=== PATIENT | male | born 1990 | race Caucasian/White ===

== ENCOUNTER → 2017-03-31 | Emergency (ER) | payer SELFPAY | PROVIDERS: Emergency Provider Nurse Practitioner; Visit Provider Nurse Practitioner ==

== ENCOUNTER → 2020-06-24 16:05 | Outpatient (CLI) | payer MEDICAID, SELFPAY ==
[2020-06-24 16:11] LABS: Adenovirus F 40/41, stool Not Detected (NotDetected); Astrovirus Not Detected (NotDetected); Campylobacter Not Detected (NotDetected); Cryptosporidium Not Detected (NotDetected); Cyclospora Cayetanesis Not Detected (NotDetected); Entamoeba histolytica Not Detected (NotDetected); Enteroaggregative E coli Not Detected (NotDetected); Enteropathogenic E coli Not Detected (NotDetected); Enterotoxigenic E coli Not Detected (NotDetected); Giardia lamblia Not Detected (NotDetected); Norovirus Not Detected (NotDetected); Plesimonas Shigalloides, PCR Not Detected (NotDetected); Rotavirus A Not Detected (NotDetected); Salmonella, PCR Not Detected (NotDetected); Sapovirus Not Detected (NotDetected); Shiga-like toxin E coli Not Detected (NotDetected); Shigella Enterovasive E coli Not Detected (NotDetected); Vibrio Cholerae Not Detected (NotDetected); Vibrio, PCR Not Detected (NotDetected); Yersinia Entercolitica, PCR Not Detected (NotDetected)
[2020-06-30 08:46] LABS: Clostridium Difficile A/B, PCR Detected (NotDetected)
== END ==
PROVIDERS: Visit Provider Nurse Practitioner Family
DX: R19.7 Diarrhea, unspecified (principal); A04.72 Enterocolitis due to Clostridium difficile, not specified as recurrent
CPT/HCPCS: 87507

== ENCOUNTER → 2020-12-17 14:59 | Outpatient (CLI) | payer MEDICAID, SELFPAY ==
[2020-12-17 15:46] LABS: Basophils % 0.3 % (0.1-2.0); Eosinophils # 0.1 K/mm3 (0.0-0.4); Eosinophils % 1.4 % (0.1-12.0); Hematocrit 39.4 % (42.0-52.0); Hemoglobin 12.8 g/dL (14.1-18.0); Lymphocytes # 2.6 K/mm3 (0.7-4.5); Lymphocytes % 27.5 % (10-50); Mean Corpuscular HGB Conc 32.6 g/dL (31.8-35.4); Mean Corpuscular Hemoglobin 29.9 pg (27.0-31.2); Mean Corpuscular Volume 91.8 fl (80-94); Mean Platelet Volume 7.3 fl (7.4-10.4); Monocytes # 0.5 K/mm3 (0.1-1.0); Monocytes % 4.9 % (1.7-9.3); Neutrophils # 6.1 K/mm3 (1.8-7.8); Neutrophils % 65.8 % (37.0-80.0); Platelet Count 318 K/mm3 (142-424); Red Blood Count 4.29 M/mm3 (4.60-6.20); Red Cell Distribution Width 12.9 % (11.5-17.5); White Blood Count 9.3 K/mm3 (4.8-10.8)
[2020-12-17 15:52] LABS: Prothrombin Time 11.5 seconds (10.1-12.5)
[2020-12-17 15:57] LABS: INR 0.97 (0.9-1.1)
[2020-12-17 16:04] LABS: Alanine Aminotransferase 24 U/L (12-78); Albumin Level 3.8 g/dl (3.5-5.0); Albumin/Globulin Ratio 1.3 (1.1-1.8); Alkaline Phosphatase 69 U/L (38-126); Anion Gap 12.8 mEq/L (5-15); Aspartate Amino Transferase 41 U/L (17-59); Bilirubin,Total 0.3 mg/dl (0.2-1.3); Blood Urea Nitrogen 8 mg/dl (9-20); Calcium 8.9 mg/dl (8.4-10.2); Carbon Dioxide 32 mmol/L (22.0-30.0); Chloride 93 mmol/L (98-107); Estimated Glomerular Filt Rate 159 ml/min (>60); GFR (African American) 193 ML/MIN (>60); Globulin 2.9 g/dL (1.3-3.2); Glucose 94 mg/dl (74-100); Potassium 3.8 mmoL/L (3.5-5.1); Sodium 134 mmol/L (136-145); Total Protein,Serum 6.7 g/dl (6.3-8.2)
[2020-12-17 16:42] LABS: Adenovirus F 40/41, stool Not Detected (NotDetected); Astrovirus Not Detected (NotDetected); Campylobacter Not Detected (NotDetected); Clostridium Difficile A/B, PCR Not Detected (NotDetected); Cryptosporidium Not Detected (NotDetected); Cyclospora Cayetanesis Not Detected (NotDetected); Entamoeba histolytica Not Detected (NotDetected); Enteroaggregative E coli Not Detected (NotDetected); Enterotoxigenic E coli Not Detected (NotDetected); Giardia lamblia Not Detected (NotDetected); Plesimonas Shigalloides, PCR Not Detected (NotDetected); Rotavirus A Not Detected (NotDetected); Salmonella, PCR Not Detected (NotDetected); Sapovirus Not Detected (NotDetected); Shiga-like toxin E coli Not Detected (NotDetected); Shigella Enterovasive E coli Not Detected (NotDetected); Vibrio Cholerae Not Detected (NotDetected); Vibrio, PCR Not Detected (NotDetected); Yersinia Entercolitica, PCR Not Detected (NotDetected)
[2020-12-17 23:24] LABS: Enteropathogenic E coli Detected (NotDetected); Norovirus Detected (NotDetected)
[2020-12-19 10:23] LABS: HIV Screen 4th Generation wRfx Non Reactive (Non Reactive); Hep A Ab, IgM Negative (Negative); Hep A Ab, Total Positive (Negative); Hep B Core Ab, Total Negative (Negative); Hep B Surface Ab, Qual Reactive (.); Hepatitis B Surface Antigen Negative (Negative); Hepatitis C Antibody >11.0 s/co ratio (0.0-0.9)
[2020-12-20 12:26] LABS: H. pylori Breath Test Negative (Negative)
[2020-12-21 07:40] LABS: ALT (SGPT) P5P 23 IU/L (0-55); Alpha 2-Macroglobulins, Qn 120 mg/dL (110-276); Apolipoprotein A-1 121 mg/dL (101-178); Bilirubin, Total 0.3 mg/dL (0.0-1.2); Fibrosis Score 0.03 (0.00-0.21); GGT 10 IU/L (0-65); Haptoglobin 165 mg/dL (17-317); Necroinflammat Activity Grade A0-No activity (.); Necroinflammat Activity Score 0.07 (0.00-0.17)
== END ==
PROVIDERS: Visit Provider Nurse Practitioner Family
DX: B18.2 Chronic viral hepatitis C (principal); R19.7 Diarrhea, unspecified; R11.2 Nausea with vomiting, unspecified; A04.0 Enteropathogenic Escherichia coli infection; A08.11 Acute gastroenteropathy due to Norwalk agent; Z11.4 Encounter for screening for human immunodeficiency virus [HIV]
CPT/HCPCS: 36415; 80053; 81596; 83013; 85025; 85610; 86703; 86704; 86706; 86708; 87340; 87380; 87507; 87522; 87902; G0432

== ENCOUNTER → 2021-01-22 11:57 | Outpatient (CLI) | payer MEDICAID, SELFPAY ==
[2021-01-22 12:15] LABS: Astrovirus Not Detected (NotDetected); Campylobacter Not Detected (NotDetected); Clostridium Difficile A/B, PCR Not Detected (NotDetected); Cryptosporidium Not Detected (NotDetected); Cyclospora Cayetanesis Not Detected (NotDetected); Entamoeba histolytica Not Detected (NotDetected); Enteroaggregative E coli Not Detected (NotDetected); Enterotoxigenic E coli Not Detected (NotDetected); Giardia lamblia Not Detected (NotDetected); Norovirus Not Detected (NotDetected); Plesimonas Shigalloides, PCR Not Detected (NotDetected); Rotavirus A Not Detected (NotDetected); Salmonella, PCR Not Detected (NotDetected); Sapovirus Not Detected (NotDetected); Shiga-like toxin E coli Not Detected (NotDetected); Shigella Enterovasive E coli Not Detected (NotDetected); Vibrio Cholerae Not Detected (NotDetected); Vibrio, PCR Not Detected (NotDetected); Yersinia Entercolitica, PCR Not Detected (NotDetected)
[2021-01-22 13:28] LABS: Chloride 102 mmol/L (98-107); Potassium 4.2 mmoL/L (3.5-5.1); Sodium 136 mmol/L (136-145)
[2021-01-22 13:31] LABS: Alanine Aminotransferase 11 U/L (12-78); Albumin Level 3.6 g/dl (3.5-5.0); Albumin/Globulin Ratio 1.2 (1.1-1.8); Alkaline Phosphatase 87 U/L (38-126); Anion Gap 8.2 mEq/L (5-15); Aspartate Amino Transferase 17 U/L (17-59); Bilirubin,Total 0.3 mg/dl (0.2-1.3); Blood Urea Nitrogen 15 mg/dl (9-20); Calcium 8.9 mg/dl (8.4-10.2); Carbon Dioxide 30 mmol/L (22.0-30.0); Estimated Glomerular Filt Rate 159 ml/min (>60); GFR (African American) 193 ML/MIN (>60); Glucose 101 mg/dl (74-100); Total Protein,Serum 6.6 g/dl (6.3-8.2)
[2021-01-22 13:48] LABS: Triiodothryronine (T3) Uptake 32 % (23.5-40.5)
[2021-01-22 13:49] LABS: Free Thyroxine Index 3.8 ug/dL (5.93-13.13); T4 (Thyroxine) 11.9 ug/dl (5.53-11.0)
[2021-01-22 15:48] LABS: Adenovirus F 40/41, stool Detected (NotDetected); Enteropathogenic E coli Detected (NotDetected)
== END ==
PROVIDERS: PCP Internal Medicine Adolescent Medicine; Visit Provider Internal Medicine Adolescent Medicine
DX: K52.9 Noninfective gastroenteritis and colitis, unspecified (principal); B34.0 Adenovirus infection, unspecified; A04.0 Enteropathogenic Escherichia coli infection
CPT/HCPCS: 80053; 84436; 84443; 84479; 87507; 87522

== ENCOUNTER → 2021-01-26 08:58 | Outpatient (CLI) | payer MEDICAID, SELFPAY ==
--- NOTE | 2021-01-26 09:03 | CT_ITS ---
PROCEDURE: CT ABDOMEN PELVIS WO/W CON CLINICAL INDICATION: CHRONIC DIARRHEA Chronic diarrhea and left lower quadrant pain with nausea and vomiting for 3-5 months. COMPARISON: No exams were available for comparison TECHNIQUE: IV Contrast: 75ML Isovue 370 Oral Contrast 10ml Gastroview Axial images obtained with sagittal and coronal reformats. All CT scans at the facility use one or more dose reduction, viz: automated exposure control, ma/kV adjustment per patient size (including targeted exams where dose is matched to indication, i.e. head), or iterative reconstruction technique. FINDINGS: LOWER THORAX: Subsegmental atelectasis left lower lobe. ABDOMEN & PELVIS: There is a linear hepatic hypodensity in the region of the ligamentum teres that extends to the liver capsule. There is mild hepatomegaly. Spleen is unremarkable. There is a splenule. Adrenal glands and kidneys are unremarkable. Ureters are not well visualized however there is no hydro ureter. Bladder appears unremarkable. Pancreas appears unremarkable. Stomach small bowel, colon, appendix appear unremarkable. There is no lymphadenopathy. Soft tissues appear unremarkable. The osseous structures appear unremarkable. IMPRESSION: Linear hepatic hypodensity in the region of the ligamentum teres that extends to the liver capsule. This could represent fat along the ligamentum teres. However, further evaluation with abdominal ultrasound is recommended to exclude a lesion. Dictated by: Vonnie Pelayo MD 01/26/2021 13:25 Vonnie Pelayo MD in [facility] 01/26/2021 13:25
== END ==
PROVIDERS: PCP Internal Medicine Adolescent Medicine; Visit Provider Internal Medicine Adolescent Medicine
DX: K52.9 Noninfective gastroenteritis and colitis, unspecified (principal)
CPT/HCPCS: 74178; Q9967

== ENCOUNTER → 2021-02-01 10:44 | Outpatient (CLI) | payer MEDICAID, SELFPAY | PROVIDERS: Visit Provider Internal Medicine Adolescent Medicine | DX: R10.84 Generalized abdominal pain (principal); B18.2 Chronic viral hepatitis C | CPT/HCPCS: 87522 ==

== ENCOUNTER 2021-02-09 16:36 | Emergency (ER) | payer MEDICAID, SELFPAY ==
--- NOTE | 2021-02-09 16:35 | ECG_ITS ---
APPROVED REPORT Exam: Resting ECG HR:105 bpm ECG Measurements Heart Rate 105 AXES SC 138 P 61 QRSd 88 QRS 85 QT 336 T 41 QTc 444 Conclusion Sinus tachycardia RSR' or QR pattern in V1 suggests right ventricular conduction delay Borderline ECG Electronically signed by : Darwin Hopson MD 02/11/2021 13:53:58
[2021-02-09 16:36] VITALS: BP 165/97; PULSE 106; RESP 16; TEMP 36.9; O2SAT 100; BMI 25.2
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
[2021-02-09 16:57] LABS: Basophils # 0.1 K/mm3 (0-0.2); Basophils % 0.7 % (0.1-2.0); Eosinophils # 0.2 K/mm3 (0.0-0.4); Eosinophils % 1.9 % (0.1-12.0); Hematocrit 45.9 % (42.0-52.0); Lymphocytes # 3.2 K/mm3 (0.7-4.5); Lymphocytes % 30.8 % (10-50); Mean Corpuscular HGB Conc 32.7 g/dL (31.8-35.4); Mean Corpuscular Hemoglobin 29.3 pg (27.0-31.2); Mean Corpuscular Volume 89.6 fl (80-94); Mean Platelet Volume 7.6 fl (7.4-10.4); Monocytes # 0.3 K/mm3 (0.1-1.0); Monocytes % 3.2 % (1.7-9.3); Neutrophils # 6.6 K/mm3 (1.8-7.8); Neutrophils % 63.4 % (37.0-80.0); Platelet Count 532 K/mm3 (142-424); Red Blood Count 5.12 M/mm3 (4.60-6.20); Red Cell Distribution Width 13.3 % (11.5-17.5); White Blood Count 10.5 K/mm3 (4.8-10.8)
[2021-02-09 17:01] LABS: Potassium 3.5 mmoL/L (3.5-5.1); Sodium 143 mmol/L (136-145)
[2021-02-09 17:04] LABS: Alanine Aminotransferase 14 U/L (12-78); Albumin Level 4.4 g/dl (3.5-5.0); Albumin/Globulin Ratio 1.4 (1.1-1.8); Alkaline Phosphatase 82 U/L (38-126); Aspartate Amino Transferase 20 U/L (17-59); Bilirubin,Total 0.3 mg/dl (0.2-1.3); Blood Urea Nitrogen 11 mg/dl (9-20); Carbon Dioxide 30 mmol/L (22.0-30.0); Creatinine Clearance Estimated 211 mL/min (50-200); Estimated Glomerular Filt Rate 159 ml/min (>60); GFR (African American) 193 ML/MIN (>60); Globulin 3.2 g/dL (1.3-3.2); Total Protein,Serum 7.6 g/dl (6.3-8.2)
[2021-02-09 17:05] LABS: Calcium 9.5 mg/dl (8.4-10.2); Glucose 82 mg/dl (74-100)
[2021-02-09 17:17] LABS: Troponin I < 0.01 ng/ml (0.00-0.034)
[2021-02-09 17:48] LABS: Anion Gap 12.5 mEq/L (5-15)
[2021-02-09 17:49] LABS: Chloride 104 mmol/L (98-107)
--- NOTE | 2021-02-09 17:53 | PC.NURSE ---
Noticed pt was attempting to walk out of ER. Stopped him and asked what he was doing, he advised that he was going to look for his dad, advised him he couldn't go out with an IV in his arm. PT walked back into his room and asked for his IV to be taken out at this time and he wanted to go. Advised he felt more anxious sitting here and just wanted to leave. Asked pt multiple times if he was sure that was what he wanted to do, pt advised it was and that he just wanted to leave. Removed IV and pt left with no issues. Advised pt if anything change to return to ED. Pt agreeable at this time
[2021-02-09 18:03] VITALS: BP 146/78; PULSE 98; RESP 16; TEMP 36.7; O2SAT 98
== END 2021-02-09 18:05 | disposition left against medical advice (07) ==
PROVIDERS: Emergency Provider Student in an Organized Health Care Education/Training Program; PCP Internal Medicine Adolescent Medicine
DX: R06.02 Shortness of breath (principal); R42 Dizziness and giddiness
CPT/HCPCS: 71046; 80053; 84484; 85025; 93005; 99283

== ENCOUNTER → 2021-05-28 09:38 | Outpatient (CLI) | payer MEDICAID, SELFPAY ==
[2021-05-28 10:41] LABS: Basophils # 0.1 K/mm3 (0-0.2); Basophils % 0.6 % (0.1-2.0); Eosinophils # 0.2 K/mm3 (0.0-0.4); Eosinophils % 1.6 % (0.1-12.0); Hematocrit 43.4 % (42.0-52.0); Hemoglobin 14.5 g/dL (14.1-18.0); Lymphocytes # 3.9 K/mm3 (0.7-4.5); Lymphocytes % 33.4 % (10-50); Mean Corpuscular HGB Conc 33.3 g/dL (31.8-35.4); Mean Corpuscular Hemoglobin 29.7 pg (27.0-31.2); Mean Corpuscular Volume 89.3 fl (80-94); Mean Platelet Volume 6.8 fl (7.4-10.4); Monocytes # 0.6 K/mm3 (0.1-1.0); Monocytes % 5.1 % (1.7-9.3); Neutrophils # 6.8 K/mm3 (1.8-7.8); Neutrophils % 59.4 % (37.0-80.0); Platelet Count 386 K/mm3 (142-424); Red Blood Count 4.87 M/mm3 (4.60-6.20); Red Cell Distribution Width 13.3 % (11.5-17.5); White Blood Count 11.5 K/mm3 (4.8-10.8)
[2021-05-28 11:15] LABS: Alanine Aminotransferase 17 U/L (12-78); Albumin Level 4.3 g/dl (3.5-5.0); Albumin/Globulin Ratio 1.5 (1.1-1.8); Alkaline Phosphatase 82 U/L (38-126); Anion Gap 11.9 mEq/L (5-15); Aspartate Amino Transferase 22 U/L (17-59); Bilirubin,Total 0.3 mg/dl (0.2-1.3); Blood Urea Nitrogen 17 mg/dl (9-20); Calcium 9.5 mg/dl (8.4-10.2); Carbon Dioxide 29 mmol/L (22.0-30.0); Chloride 101 mmol/L (98-107); Estimated Glomerular Filt Rate 133 ml/min (>60); GFR (African American) 161 ML/MIN (>60); Globulin 2.9 g/dL (1.3-3.2); Glucose 89 mg/dl (74-100); Potassium 3.9 mmoL/L (3.5-5.1); Sodium 138 mmol/L (136-145); Total Protein,Serum 7.2 g/dl (6.3-8.2)
[2021-05-28 11:31] LABS: 25-OH Vitamin D, Total 16.9 ng/mL (30-100)
[2021-05-28 11:32] LABS: T4 (Thyroxine) 8.5 ug/dl (5.53-11.0)
[2021-05-28 11:33] LABS: Free Thyroxine Index 2.7 ug/dL (5.93-13.13); Triiodothryronine (T3) Uptake 32 % (23.5-40.5)
[2021-05-28 11:45] LABS: Thyroid Stimulating Hormone 2.87 uIU/mL (0.465-4.68)
[2021-05-28 12:03] LABS: Vitamin B12 279 pg/mL (239-931)
[2021-05-31 16:28] LABS: Treponema pallidum Ab (FTA-ABS Non Reactive (Non Reactive)
[2021-06-01 03:37] LABS: Hep A Ab, IgM Negative (Negative); Hepatitis B Core Antibody IgM Negative (Negative); Hepatitis B Surface Antigen Negative (Negative); Hepatitis C Antibody >11.0 s/co ratio (0.0-0.9)
== END ==
PROVIDERS: PCP Internal Medicine Adolescent Medicine; Referring Provider Internal Medicine Adolescent Medicine; Visit Provider Internal Medicine Adolescent Medicine
DX: G60.9 Hereditary and idiopathic neuropathy, unspecified (principal); Z86.19 Personal history of other infectious and parasitic diseases
CPT/HCPCS: 36415; 80053; 80074; 82306; 82607; 84436; 84443; 84479; 85025; 86780; 87522

== ENCOUNTER 2021-06-13 09:39 | Emergency (ER) | payer MEDICAID, SELFPAY ==
[2021-06-13 09:41] VITALS: BP 147/97; PULSE 120; RESP 20; TEMP 36.7; O2SAT 98; BMI 25.1
--- NOTE | 2021-06-13 10:00 | PC.NURSE ---
ED MD at
--- NOTE | 2021-06-13 10:07 | [facility].EDGENADL ---
ED Disposition Clinical Impression: Multiple excoriations, Rash and other nonspecific skin eruption Disposition: Home, Self-Care Condition on Discharge: Good Instructions: DI for Skin Abscess Additional Instructions: Please follow up with Dr. Hopson regarding the remainder of your bloodwork. You may take Benadryl or Vistaril at home for symptoms. In the meantime, try to prevent itching and scratching the rash and lesions as this will worsen your condition. If your condition worsens or any other concerns arise, please return to the emergency department. Otherwise, please follow-up as instructed. Referrals: Darwin Hopson MD [Primary Care Provider] - - Critical Care Critical Care Time: No Attestation: On 06/13/21, the high probability of a clinically significant, sudden or life threatening deterioration of the following system(s) required my full and direct attention, intervention and personal management. The time I documented below is in addition to time spent performing reported procedures but includes the following listed in this critical care notation. Medical Decision Making - Medical Records Medical records reviewed: Yes: I reviewed the patient's medical records. - Jose Daniel Inquiry Pt receiving controlled substance: No Vital Signs: 06/13/21 09:41 Temperature 98.0 F Temperature Source Oral Pulse Rate [Left Radial] 120 H Respiratory Rate 20 Blood Pressure [Right Arm] 147/97 H Blood Pressure Mean [Right Arm] 113 Blood Pressure Source [Right Arm] Automatic Cuff Blood Pressure Position [Right Arm] Sitting 02 Sat by Pulse Oximetry 98 Oxygen Delivery Method Room Air - Lab Data Lab results reviewed: Yes: I reviewed the patient's lab results. Lab Results 06/13/21 10:08: Urine Color Dk yellow, Urine Appearance Clear, Urine pH 6.0, Ur Specific [place] >= 1.030, Urine Protein Trace, Urine Glucose (UA) Negative, Urine Ketones Negative, Urine Blood Negative, Urine Nitrate Negative, Urine Bilirubin Negative, Urine Urobilinogen 0.2, Ur Leukocyte Esterase Negative, Urine RBC Occasional, Urine WBC None, Ur Squamous Epith Cells Occasional, Urine Bacteria Trace 06/13/21 10:30: WBC 8.8, RBC 4.88, Hgb 14.5, Hct 43.6, MCV 89.4, MCH 29.8, MCHC 33.3, RDW 13.7, Plt Count 390, MPV 7.2 L, Neut % (Auto) 62.4, Lymph % (Auto) 30.8, [place] % (Auto) 4.5, Eos % (Auto) 1.2, Baso % (Auto) 1.1, Neut # (Auto) 5.5, Lymph # (Auto) 2.7, [place] # (Auto) 0.4, Eos # (Auto) 0.1, Baso # (Auto) 0.1 06/13/21 10:30: Sodium 135 L, Potassium 3.5, Chloride 97 L, Carbon Dioxide 30, Anion Gap 11.5, BUN 13, Creatinine 0.80, Estimated Creat Clear 157, Estimated GFR 114, Est GFR ( Amer) 138, Glucose 88, Calcium 8.8, Total Bilirubin 0.6, AST 39, ALT 22, Alkaline Phosphatase 90, Total Protein 7.9, Albumin 4.5, Globulin 3.4 H, Albumin/Globulin Ratio 1.3, Lipase 27 Result diagrams: 06/13/21 10:30 06/13/21 10:30 Orders (Tests/Meds): ED MEDICATIONS Discontinued Medications Generic Name Dose Route Start Last Admin Trade Name Jemal PRN Reason Stop Dose Admin Hydroxyzine Pamoate 50 mg 06/13/21 10:25 06/13/21 11:18 Hydroxyzine Pamoate 25mg Capsule PO 06/13/21 10:26 50 mg ONCE ONE Administration ORDERS Category Date Time Status HCV RNA PCR, Quant Stat Lab 06/13/21 10:30 Received HIV Panel [id number] Stat Lab 06/13/21 10:30 Received Strep Scrn Group A (Rapid) Stat Lab 06/13/21 10:14 Ordered Treponema pallidum Ab (FTA-ABS Stat Lab 06/13/21 10:30 Received Medical Decision Narrative: Patient is a 30-year-old male with a history significant for IV drug use is presenting for chief complaint of lesions and excoriations to upper extremities, face, trunk and back. Differential diagnosis includes, but is not limited to, skin excoriation secondary to drug use, insect bite such as flea versus scabies, syphilis rash, allergic reaction, atopic dermatitis, other. On initial exam, patient is tachycardic but does admit to feeling anxious. Otherwi
--- NOTE | 2021-06-13 10:18 | PC.NURSE ---
Called lab for pt blood draw
[2021-06-13 10:48] LABS: Basophils # 0.1 K/mm3 (0-0.2); Basophils % 1.1 % (0.1-2.0); Eosinophils # 0.1 K/mm3 (0.0-0.4); Eosinophils % 1.2 % (0.1-12.0); Hematocrit 43.6 % (42.0-52.0); Hemoglobin 14.5 g/dL (14.1-18.0); Lymphocytes # 2.7 K/mm3 (0.7-4.5); Lymphocytes % 30.8 % (10-50); Mean Corpuscular HGB Conc 33.3 g/dL (31.8-35.4); Mean Corpuscular Hemoglobin 29.8 pg (27.0-31.2); Mean Corpuscular Volume 89.4 fl (80-94); Mean Platelet Volume 7.2 fl (7.4-10.4); Monocytes # 0.4 K/mm3 (0.1-1.0); Monocytes % 4.5 % (1.7-9.3); Neutrophils # 5.5 K/mm3 (1.8-7.8); Neutrophils % 62.4 % (37.0-80.0); Platelet Count 390 K/mm3 (142-424); Red Blood Count 4.88 M/mm3 (4.60-6.20); Red Cell Distribution Width 13.7 % (11.5-17.5); White Blood Count 8.8 K/mm3 (4.8-10.8)
[2021-06-13 10:58] LABS: Chloride 97 mmol/L (98-107); Potassium 3.5 mmoL/L (3.5-5.1); Sodium 135 mmol/L (136-145)
[2021-06-13 11:00] LABS: Alanine Aminotransferase 22 U/L (12-78); Alkaline Phosphatase 90 U/L (38-126); Aspartate Amino Transferase 39 U/L (17-59); Bilirubin,Total 0.6 mg/dl (0.2-1.3); Blood Urea Nitrogen 13 mg/dl (9-20); Creatinine Clearance Estimated 157 mL/min (50-200); Estimated Glomerular Filt Rate 114 ml/min (>60); GFR (African American) 138 ML/MIN (>60)
[2021-06-13 11:01] LABS: Albumin Level 4.5 g/dl (3.5-5.0); Albumin/Globulin Ratio 1.3 (1.1-1.8); Anion Gap 11.5 mEq/L (5-15); Calcium 8.8 mg/dl (8.4-10.2); Carbon Dioxide 30 mmol/L (22.0-30.0); Globulin 3.4 g/dL (1.3-3.2); Glucose 88 mg/dl (74-100); Lipase 27 U/L (23-300); Total Protein,Serum 7.9 g/dl (6.3-8.2)
[2021-06-13 11:39] LABS: Microscopic, Urine URINE MICROSCOPIC (MICROSCOPIC)
[2021-06-13 11:41] LABS: Appearance,Urine CLEAR (Clear); Bilirubin,Urine Negative (Negative); Blood, Urine Negative (Negative); Color,Urine DK YELLOW (Yellow); Glucose,Urine (UA) Negative (Negative); Ketones,Urine Negative (Negative); Leukocyte Esterase,Urine Negative (Negative); Nitrate,Urine Negative (Negative); Protein,Urine TRACE (Negative); Specific Gravity, Urine >= 1.030 (1.005-1.030); Urobilinogen,Urine 0.2 EU/dl (0.2)
[2021-06-13 11:57] LABS: Bacteria,Urine Trace /lpf; RBC,Urine Occasional #/hpf (0-3); Squamous Epithelial Cell,Urine Occasional #/hpf (0-5)
[2021-06-13 12:24] VITALS: BP 153/99; PULSE 107; RESP 18; TEMP 36.7; O2SAT 100
[2021-06-13 12:33] LABS: Strep Scrn Group A (Rapid) Negative (Negative)
[2021-06-14 04:15] LABS: HIV Screen 4th Generation wRfx Non Reactive (Non Reactive)
[2021-06-14 17:21] LABS: Treponema pallidum Ab (FTA-ABS Non Reactive (Non Reactive)
[2021-06-14 22:08] LABS: Neisseria gonorrhoeae, NAA Negative (Negative)
== END 2021-06-13 12:27 | disposition home or self-care (01) ==
PROVIDERS: Emergency Provider Emergency Medicine; PCP Internal Medicine Adolescent Medicine
DX: F42.4 Excoriation (skin-picking) disorder (principal); F19.10 Other psychoactive substance abuse, uncomplicated; Z79.899 Other long term (current) drug therapy
CPT/HCPCS: 36415; 80053; 81001; 83690; 85025; 86703; 86780; 87430; 87491; 87522; 87591; 99213; G0432; G0463

== ENCOUNTER 2021-08-10 15:46 | Emergency (ER) | payer MEDICAID, SELFPAY ==
--- NOTE | 2021-08-10 15:46 | ECG_ITS ---
APPROVED REPORT Exam: Resting ECG HR:106 bpm ECG Measurements Heart Rate 106 AXES OK 138 P 46 QRSd 91 QRS 76 QT 309 T 38 QTc 371 Conclusion SINUS TACHYCARDIA ABNORMAL RHYTHM ECG UNCONFIRMED REPORT Electronically signed by : Darwin Hopson MD 08/11/2021 21:10:53
[2021-08-10 15:48] VITALS: BP 127/90; PULSE 105; RESP 19; TEMP 36.7; O2SAT 99; BMI 30.7
--- NOTE | 2021-08-10 15:53 | XR_ITS ---
FINAL REPORT CLINICAL HISTORY: chest pain COMPARISON: February 09, 2021 FINDINGS: Two views of the chest were obtained. The patient is status post median sternotomy. The heart size and pulmonary vascularity are within normal limits. The mediastinum is normal. No acute pulmonary abnormality is identified. There is no pneumothorax. The bony thorax is intact. IMPRESSION: No active cardiopulmonary disease. Reviewed, Interpreted and Dictated by Harvinder Persaud III, MD Transcribed by Stephanie Mcneill Authenticated by Harvinder Persaud III, MD on 08/10/2021 04:36:47 PM [facility]
--- NOTE | 2021-08-10 15:58 | CT_ITS ---
FINAL REPORT TECHNIQUE: After the administration of oral and intravenous contrast, axial images were obtained through the abdomen and pelvis by computed tomography. The study was performed with techniques to keep radiation dose as low as reasonably achievable, (ALARA). Individual dose reduction techniques using automated exposure control or adjustment of mA and/or kV according to the patient's size were employed. CLINICAL HISTORY: LEFT SIDED ABD PAIN COMPARISON: 01/26/2021 FINDINGS: Abdomen: There is mild atelectasis or scarring in the left lung base. The liver is normal in size and attenuation. The gallbladder is present. The spleen is unremarkable. The adrenals are normal. The pancreas is unremarkable. The kidneys enhance appropriately. The aorta is normal in caliber. There is no free fluid or adenopathy. Pelvis: The appendix is normal. The urinary bladder is unremarkable. There is no free fluid or adenopathy. IMPRESSION: No acute intra-abdominal process. Reviewed, Interpreted and Dictated by Harvinder Persaud III, MD Transcribed by Stephanie Mcneill Authenticated by Harvinder Persaud III, MD on 08/10/2021 04:36:48 PM [facility]
[2021-08-10 16:00] VITALS: BP 129/85; PULSE 101; RESP 20; O2SAT 98
[2021-08-10 16:02] LABS: Coronavirus 19, PCR Not Detected (NotDetected); Influenza A, PCR Not Detected (NotDetected); Influenza B, PCR Not Detected (NotDetected)
[2021-08-10 16:11] LABS: Chloride 104 mmol/L (98-107); Potassium 3.7 mmoL/L (3.5-5.1); Sodium 136 mmol/L (136-145)
[2021-08-10 16:12] LABS: Basophils # 0.2 K/mm3 (0-0.2); Basophils % 1.6 % (0.1-2.0); Eosinophils # 0.1 K/mm3 (0.0-0.4); Eosinophils % 0.4 % (0.1-12.0); Hematocrit 49.2 % (42.0-52.0); Hemoglobin 16.4 g/dL (14.1-18.0); Lymphocytes # 2.5 K/mm3 (0.7-4.5); Lymphocytes % 18.6 % (10-50); Mean Corpuscular HGB Conc 33.3 g/dL (31.8-35.4); Mean Corpuscular Hemoglobin 30.1 pg (27.0-31.2); Mean Corpuscular Volume 90.5 fl (80-94); Mean Platelet Volume 7.5 fl (7.4-10.4); Monocytes # 0.9 K/mm3 (0.1-1.0); Monocytes % 6.9 % (1.7-9.3); Neutrophils # 9.7 K/mm3 (1.8-7.8); Neutrophils % 72.5 % (37.0-80.0); Platelet Count 403 K/mm3 (142-424); Red Blood Count 5.44 M/mm3 (4.60-6.20); White Blood Count 13.4 K/mm3 (4.8-10.8)
[2021-08-10 16:14] LABS: Amylase 92 U/L (30-110); Anion Gap 10.7 mEq/L (5-15); Blood Urea Nitrogen 12 mg/dl (9-20); Carbon Dioxide 25 mmol/L (22.0-30.0); Creatinine Clearance Estimated 256 mL/min (50-200); Estimated Glomerular Filt Rate 159 ml/min (>60); GFR (African American) 193 ML/MIN (>60); Lipase 34 U/L (23-300)
[2021-08-10 16:15] LABS: Calcium 9.2 mg/dl (8.4-10.2); Glucose 112 mg/dl (74-100)
--- NOTE | 2021-08-10 16:24 | HMH.EDGENADL ---
ED Disposition Clinical Impression: Gastroenteritis Disposition: Home, Self-Care Condition on Discharge: Good Instructions: DI for Viral Gastroenteritis -- Adult Prescriptions: Dicyclomine HCl [Bentyl 10mg capsule] 10 mg PO QID #28 cap Transmission Status: Pending to [facility] # Ondansetron [Zofran 4mg ODT] 4 mg PO BIDP PRN #10 tab PRN Reason: Nausea Transmission Status: Pending to [facility] # Referrals: Provider,Referral, [Referring] - - Critical Care Critical Care Time: No Attestation: On 08/10/21, the high probability of a clinically significant, sudden or life threatening deterioration of the following system(s) required my full and direct attention, intervention and personal management. The time I documented below is in addition to time spent performing reported procedures but includes the following listed in this critical care notation. Medical Decision Making - Medical Records Medical records reviewed: Yes: I reviewed the patient's medical records. - Jose Daniel Inquiry Pt receiving controlled substance: No Vital Signs: 08/10/21 15:48 Temperature 98.1 F Temperature Source Oral Pulse Rate [Left Radial] 105 H Respiratory Rate 19 Blood Pressure [Right Arm] 127/90 Blood Pressure Mean [Right Arm] 102 Blood Pressure Source [Right Arm] Automatic Cuff Blood Pressure Position [Right Arm] Sitting 02 Sat by Pulse Oximetry 99 Oxygen Delivery Method Room Air - Lab Data Lab Results 08/10/21 15:54: WBC 13.4 H, RBC 5.44, Hgb 16.4, Hct 49.2, MCV 90.5, MCH 30.1, MCHC 33.3, RDW 14.0, Plt Count 403, MPV 7.5, Neut % (Auto) 72.5, Lymph % (Auto) 18.6, [place] % (Auto) 6.9, Eos % (Auto) 0.4, Baso % (Auto) 1.6, Neut # (Auto) 9.7 H, Lymph # (Auto) 2.5, [place] # (Auto) 0.9, Eos # (Auto) 0.1, Baso # (Auto) 0.2 08/10/21 15:54: Sodium 136, Potassium 3.7, Chloride 104, Carbon Dioxide 25, Anion Gap 10.7, BUN 12, Creatinine 0.60 L, Estimated Creat Clear 256, Estimated GFR 159, Est GFR ( Amer) 193, Glucose 112 H, Calcium 9.2, Troponin I < 0.01, Amylase 92, Lipase 34 08/10/21 15:54: SARS-CoV-2 (PCR) Not detected, Influenza A Untype (PCR) Not detected, Influenza Type B (PCR) Not detected Result diagrams: 08/10/21 15:54 08/10/21 15:54 Orders (Tests/Meds): ED MEDICATIONS Generic Name Dose Route Start Last Admin Trade Name Freq PRN Reason Stop Dose Admin Sodium Chloride 1,000 mls @ 999 mls/hr 08/10/21 16:15 08/10/21 16:14 Sod Chlor 0.9% 1000ml Bag IV 08/10/21 17:15 999 mls/hr .Q1H1M THOR Administration Sodium Chloride 10 ml 08/10/21 15:53 Sodium Chloride 0.9% 10ml Flush Syringe IV 09/09/21 15:52 NEEDED PRN Maintain IV Site Discontinued Medications Generic Name Dose Route Start Last Admin Trade Name Freq PRN Reason Stop Dose Admin Lactated Ringer's 1,000 mls @ 999 mls/hr 08/10/21 16:00 08/10/21 16:12 Lactated Ringer's 1000 Ml Bag IV 08/10/21 17:00 Not Given .Q1H1M THOR Iopamidol 75 ml 08/10/21 16:21 08/10/21 16:22 Iopamidol-370 (76%);100ml Bottle IV 08/10/21 16:22 75 ml ONCE ONE Administration Promethazine HCl 25 mg 08/10/21 15:58 08/10/21 16:10 Promethazine Hcl 25mg/Ml 1ml Vial IV 08/10/21 15:59 25 mg ONCE ONE Administration Sodium Chloride 25 ml 08/10/21 15:58 08/10/21 16:10 Sodium Chloride 0.9% 25ml Bag IV 08/10/21 15:59 25 ml ONCE ONE Administration Sodium Chloride 10 ml 08/10/21 16:21 08/10/21 16:22 Sodium Chloride 0.9% 10ml Syr (Rad Only) IV 08/10/21 16:22 10 ml ONCE ONE Administration ORDERS Category Date Time Status Troponin I Q3H Lab 08/10/21 19:00 Ordered Troponin I Q3H Lab 08/10/21 22:00 Ordered - Radiology Data #1 Image(s): Chest Image Reviewed: Yes I reviewed the patient's radiology results, Yes I reviewed the patient's radiology image, Yes I have reviewed radiologist's interpretation Preliminary Findings: Normal/NAD - CT Data CT Scan: Abdomen,
[2021-08-10 16:28] LABS: Troponin I < 0.01 ng/ml (0.00-0.034)
[2021-08-10 17:31] VITALS: BP 129/85; PULSE 101; RESP 20; TEMP 36.7; O2SAT 98
== END 2021-08-10 17:34 | disposition home or self-care (01) ==
PROVIDERS: Emergency Provider Emergency Medicine; PCP Internal Medicine Adolescent Medicine
DX: K52.9 Noninfective gastroenteritis and colitis, unspecified (principal); F41.8 Other specified anxiety disorders; Z88.1 Allergy status to other antibiotic agents; F17.210 Nicotine dependence, cigarettes, uncomplicated
CPT/HCPCS: 71046; 74177; 80048; 82150; 83690; 84484; 85025; 93005; 96360; 96375; 99284; C9803; Q9967; U0003; U0005